=== PATIENT | male | born 2000 | race Caucasian/White ===

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

== ENCOUNTER 2019-01-28 07:59 | Emergency (ER) | payer OTHER ==
[~2019-01-28] VITALS: Ht 170.2 cm; Wt 68.0 kg
--- NOTE | 2019-01-28 08:03 | NUR ---
PT AMBULATED TO BED 4.
[2019-01-28 08:05] VITALS: BP 135/93
--- NOTE | 2019-01-28 08:05 | NUR ---
18/M BIB MOTHER C/O INTERMITENT HEADACHE X 2 DAYS; N/V/D X YESTERDAY. PATIENT STATES PAIN OF 5/10 AT THIS TIME. PATIENT POSITIONED FOR COMFORT; HOB ELEVATED; BEDRAILS UP X1; BED DOWN. ER MD MADE AWARE OF PT STATUS.
[2019-01-28] MEDS ORDERED: ONDANSETRON 4 MG ODT PO ONE (08:10)
[2019-01-28] MEDS ORDERED: DIPHENOXYLATE /ATROPINE 2.5 MG TAB PO ONE (08:10)
[2019-01-28 08:39] VITALS: BP 135/93
--- NOTE | 2019-01-28 08:39 | NUR ---
Patient discharged with v/s stable. Written and verbal after care instructions given and explained. Patient alert, oriented and verbalized understanding of instructions. Ambulatory with steady gait. All questions addressed prior to discharge. ID band removed. Patient advised to follow up with PMD. Rx of LOMOTIL&ZOFRAN given. Patient educated on indication of medication including possible reaction and side effects. Opportunity to ask questions provided and answered.
== END 2019-01-28 08:39 | disposition home or self-care (01) ==
LOC: MED 07:59
DX: R11.2 Nausea with vomiting, unspecified (principal); R19.7 Diarrhea, unspecified; R03.0 Elevated blood-pressure reading, without diagnosis of hypertension
CPT/HCPCS: 99283; Q0162

== ENCOUNTER 2019-02-24 08:38 | Emergency (ER) | payer OTHER ==
[~2019-02-24] VITALS: Ht 167.6 cm; Wt 64.5 kg
[2019-02-24 09:05] VITALS: BP 120/77
--- NOTE | 2019-02-24 10:30 | NUR ---
no answer in er lobby
--- NOTE | 2019-02-24 10:47 | NUR ---
no answer in er lobby
== END 2019-02-24 10:47 | disposition left against medical advice (07) ==
LOC: MED 08:38
DX: R11.10 Vomiting, unspecified (principal); Z53.21 Procedure and treatment not carried out due to patient leaving prior to being seen by health care provider

== ENCOUNTER 2019-04-09 16:12 | Emergency (ER) | payer OTHER ==
[~2019-04-09] VITALS: Ht 170.2 cm; Wt 64.4 kg
--- NOTE | 2019-04-09 16:18 | NUR ---
pt. ambulated to bed 4
[2019-04-09 16:20] VITALS: BP 157/90
--- NOTE | 2019-04-09 16:25 | NUR ---
INFLUENZA SWAB COLLECTED
[2019-04-09] MEDS ORDERED: ONDANSETRON 4 MG ODT PO ONE (16:30)
[2019-04-09] MEDS ORDERED: ACETAMINOPHEN EXTRA STRENGTH 500 MG TAB PO ONE (16:30)
--- NOTE | 2019-04-09 16:36 | NUR ---
TYLENOL AND ZOFRAN ADMINISTERED
--- NOTE | 2019-04-09 16:39 | NUR ---
PT C/O PRODUCTIVE COUGH, CONGESTION, AND HEADACHE PAIN 6/10 SINCE YESTERDAY. PT ALSO ADDS A COUPLE EPIDOSDE OF VOMITING. DENIES AB PAIN OR DIARRHEA. HR 117. PT STATES SISTER IS ALSO SICK WITH SIMILAR S/S. LUNGS CKLEAR BILTERALLY. RR EVEN AND UNLABORED. PT ALERT AND AWAKE, AMBULATORY.
--- NOTE | 2019-04-09 16:47 | NUR ---
NADR, PAIN 06/21
[2019-04-09 16:48] VITALS: BP 157/90
--- NOTE | 2019-04-09 16:48 | NUR ---
Patient discharged with v/s stable. Written and verbal after care instructions given and explained. Patient alert, oriented and verbalized understanding of instructions. Ambulatory with steady gait. All questions addressed prior to discharge. ID band removed. Patient advised to follow up with PMD. Rx of TAMIFLU, ACETAMINOPHEN, ZOFRAN, PROMETHAZINE SYRUP given. Patient educated on indication of medication including possible reaction and side effects. Opportunity to ask questions provided and answered. PT GIVEN EXCUSE FOR SCHOOL TOMORROW
== END 2019-04-09 16:48 | disposition home or self-care (01) ==
LOC: MED 16:12
DX: J11.1 Influenza due to unidentified influenza virus with other respiratory manifestations (principal)
CPT/HCPCS: 87804; 99283; Q0162